=== PATIENT | female | born 1945 | race Caucasian/White ===

== ENCOUNTER 2023-09-22 11:47 | Emergency (ER) | payer OTHER, BC ==
[~2023-09-22] VITALS: Ht 144.8 cm; Wt 68.0 kg
[~2023-09-22 11:47] MED LIST: AMLO5TAB4 PO; LISI-209 PO; NAPR250T PO; SIMV-341 PO; SUCR1TAB2 PO; ZOLP10TA2 PO
[2023-09-22 11:54] VITALS: BP_SYST 90; PULSE 53; RESP 16; TEMP 98.1; O2SAT 97
[2023-09-22] MEDS ORDERED: NACL 0.9% 1,000 ML IV ONE (12:15)
[2023-09-22 12:25] LABS: BASOPHILS % (AUTO) 0.5 % (0.0-2.0); EOSINOPHILS # (AUTO) 0.2 K/uL (0.0-0.4); EOSINOPHILS % (AUTO) 2.1 % (0.0-4.0); HEMATOCRIT 36.5 % (36-48); HEMOGLOBIN 11.5 g/dL (12.0-16.0); LYMPHOCYTES # (AUTO) 1.3 K/uL (1.0-5.5); LYMPHOCYTES % (AUTO) 16.5 % (20.5-51.5); MEAN CORPUSCULAR HEMOGLOBIN 28 pg (27-31); MEAN CORPUSCULAR HGB CONC 32 % (32-36); MEAN CORPUSCULAR VOLUME 89 fL (79.0-98.0); MONOCYTES # (AUTO) 0.3 K/uL (0.0-1.0); MONOCYTES % (AUTO) 4.1 % (1.7-9.3); NEUTROPHILS % (AUTO) 76.8 % (40.0-70.0); PLATELET COUNT (AUTO) 182 K/uL (130-430); RED BLOOD CELL COUNT(AUTO) 4.09 MIL/uL (4.2-6.2); RED CELL DISTRIBUTION WIDTH 17.4 % (9.0-15.0); WHITE BLOOD COUNT (AUTO) 7.8 K/uL (4.8-10.8)
[2023-09-22 12:41] LABS: ALANINE AMINOTRANSFERASE 19 U/L (12-78); ANION GAP 12 (5-15); ASPARTATE AMINOTRANSFERASE 10 U/L (10-37); CALCIUM 9.7 mg/dL (8.4-11.0); CARBON DIOXIDE 22 mmol/L (23-29); CHLORIDE 97 mmol/L (98-107); CREATININE 1.16 mg/dL (0.55-1.30); POTASSIUM 5.4 mmol/L (3.5-5.1); SODIUM SERUM 131 mmol/L (136-145); TOTAL BILIRUBIN 0.4 mg/dL (0.0-1.0); TOTAL PROTEIN, SERUM 6.1 g/dL (6.4-8.3); UREA NITROGEN, BLOOD 27 mg/dL (8-21)
[2023-09-22 12:46] LABS: GLUCOSE 565 mg/dL (74-106)
[2023-09-22] MEDS ORDERED: INSULIN REGULAR, HUMAN 10 UNITS/0.1 ML, 3 ML VIAL IVP ONE (13:15)
[2023-09-22 15:08] VITALS: BP_SYST 94; PULSE 52; RESP 16; TEMP 98.3; O2SAT 98
== END 2023-09-22 15:11 ==
LOC: SED 11:47
DX: E11.65 Type 2 diabetes mellitus with hyperglycemia (principal); M25.551 Pain in right hip; K21.9 Gastro-esophageal reflux disease without esophagitis; I10 Essential (primary) hypertension; Z79.899 Other long term (current) drug therapy
CPT/HCPCS: 99284; 96360; 80053; 82962; 85025; 36415; 72170; 73502; J1815; J7030; 96372